=== PATIENT | male | born 1990 | race Caucasian/White ===

== ENCOUNTER 2019-01-08 23:25 | Emergency (ER) | payer MEDICAID ==
[~2019-01-08] VITALS: Ht 177.8 cm; Wt 79.4 kg
--- NOTE | 2019-01-08 23:45 | NUR ---
BIB SELF C/O FREQUENCY, PAIN AND BURNING UPON URINATION X1 DAY, URINE COLLECTED, IN ANNETTE WAITING FOR MED EVAL
[2019-01-09 01:01] LABS: APPEARANCE,URINE Slightly Cloudy (CLEAR); BILIRUBIN,URINE Negative (NEGATIVE); BLOOD, URINE Trace-intact Ery/uL (NEGATIVE); COLOR,URINE Yellow (YELLOW); KETONES,URINE Negative (NEGATIVE); LEUKOCYTE ESTERASE ,URINE Trace (NEGATIVE); NITRITE, URINE Negative (NEGATIVE); PROTEIN,URINE Negative (NEGATIVE); UGLUCOSE Negative (NEGATIVE); UROBILINOGEN,URINE 0.2 EU/dL (0.2)
[2019-01-09 01:51] VITALS: BP 129/76
[2019-01-09 02:01] LABS: BACTERIA,URINE Few /HPF (None Seen); SQUAMOUS EPITHELIAL CELL,UR Rare /HPF (None Seen); WBC,URINE TOO NUMEROUS TO COUN /HPF (0-3)
== END 2019-01-09 01:51 | disposition home or self-care (01) ==
LOC: ER 23:30
DX: N34.2 Other urethritis (principal); F17.200 Nicotine dependence, unspecified, uncomplicated
CPT/HCPCS: 81000-TC; 87086-TC; 87491; 87591

== ENCOUNTER 2019-01-16 14:06 | Emergency (ER) | payer MEDICAID, OTHER ==
[~2019-01-16] VITALS: Ht 172.7 cm; Wt 77.6 kg
[2019-01-16 14:21] VITALS: BP 134/86
[2019-01-16] MEDS ORDERED: LIDOCAINE /MPF 1% VIAL 5 ML VIAL ONE (14:46)
[2019-01-16] MEDS ORDERED: CEFTRIAXONE 500 MG VIAL ONE (14:46)
[2019-01-16] MEDS ORDERED: AZITHROMYCIN 250 MG TABLET ONE ×2 (14:46→14:59)
[2019-01-16] MEDS ORDERED: AZITHROMYCIN 250 MG TABLET PO ONE (15:00)
[2019-01-16] MEDS ORDERED: CEFTRIAXONE 1 G VIAL IM ONE (15:00)
== END 2019-01-16 15:06 | disposition home or self-care (01) ==
LOC: ER 14:11
DX: N48.89 Other specified disorders of penis (principal); N34.2 Other urethritis; F17.200 Nicotine dependence, unspecified, uncomplicated; Z20.2 Contact with and (suspected) exposure to infections with a predominantly sexual mode of transmission
CPT/HCPCS: 96372; 99283; J0696; J3490